=== PATIENT | female | born 1935 | race Caucasian/White ===

== ENCOUNTER 2022-06-10 09:44 | Emergency (ER) | payer MEDICARE, BC | END 2022-06-10 10:45 | disposition home or self-care (01) | LOC: BURERS 09:44 | DX: S80.01XA Contusion of right knee, initial encounter (principal); I10 Essential (primary) hypertension; M06.9 Rheumatoid arthritis, unspecified; W18.30XA Fall on same level, unspecified, initial encounter; Z79.82 Long term (current) use of aspirin; Z79.899 Other long term (current) drug therapy ==